=== PATIENT | male | born 2000 | race Caucasian/White ===

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

== ENCOUNTER 2023-07-09 05:15 | Emergency (ER) | payer OTHER, SELFPAY ==
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
[2023-07-09 05:15] VITALS: BP 150/105; PULSE 127; RESP 8; TEMP 36.8; O2SAT 97; BMI 25.5
[2023-07-09] MEDS: Acetaminophen 325 MG TABLET 975 MG PO (05:27)
== END 2023-07-09 06:30 | disposition left against medical advice (07) ==
PROVIDERS: Emergency Provider Emergency Medicine
DX: S99.911A Unspecified injury of right ankle, initial encounter (principal); S62.651A Nondisplaced fracture of middle phalanx of left index finger, initial encounter for closed fracture; V47.6XXA Car passenger injured in collision with fixed or stationary object in traffic accident, initial encounter; Y93.9 Activity, unspecified; Y92.410 Unspecified street and highway as the place of occurrence of the external cause; Y99.9 Unspecified external cause status; Z53.21 Procedure and treatment not carried out due to patient leaving prior to being seen by health care provider
CPT/HCPCS: 73130; 73600; 99282; 99283

== ENCOUNTER 2024-10-16 19:40 | Emergency (ER) | payer OTHER, SELFPAY ==
--- NOTE | ~2024-10-16 | XR_ITS ---
CLINICAL HISTORY: Mediastinal pain 2 view chest x-ray Comparison: None provided Findings: The lungs are clear. Normal size heart. No acute fracture. IMPRESSION: 1. No acute cardiopulmonary abnormality. This document has been electronically signed by: Brendan Sanabria MD on 10/16/2024 23:16:31
--- NOTE | 2024-10-16 19:42 | ECG_ITS ---
Test Reason : cp Blood Pressure : */* mmHG Vent. Rate : 98 BPM Atrial Rate : 98 BPM P-R Int : 138 ms QRS Dur : 88 ms QT Int : 324 ms P-R-T Axes : 59 38 44 degrees QTcB Int : 413 ms Normal sinus rhythm with sinus arrhythmia Normal ECG No previous ECGs available Referred By: Anika Cardenas Electronically Signed By: VIV LOJA MD
[2024-10-16 20:10] VITALS: BP 171/85; PULSE 96; RESP 20; TEMP 37.1; O2SAT 96; BMI 26.1
--- NOTE | 2024-10-16 20:10 | ED.CHESTPAIN ---
HPI - Chest Pain General Chief Complaint: Chest Pain Stated Complaint: Chest pain/lower back pain Time Seen by Provider: 10/16/24 22:43 Source: patient Mode of arrival: ambulatory Limitations: no limitations History of Present Illness ED Provider: HPI narrative: Patient with history of alcohol use been drinking Tequila daily for last 1 week last drink was yesterday complaining of midsternal pain and epigastric pain with nausea and vomiting Related Data Previous Rx's ?Medication ?Instructions ?Recorded omeprazole 40 mg capsule,delayed 40 mg PO DAILY #30 caps 10/17/24 release Allergies Allergy/AdvReac Type Severity Reaction Status Date / Time No Known Allergies (No Known Allergy Verified 10/16/24 20:16 Allergies*) Review of Systems Review of Systems: Yes all other systems are reviewed and are negative [facility] Past Medical History Medical History No known health problems Social History Social History Alcohol intake: current Alcohol intake frequency: 3 or more drinks per day Alcohol type: hard liquor Smoked in Last 30 Days: Yes Use of substances other than those prescribed or required for medical reasons: Yes Substance Use Type: Crack/Cocaine and Marijuana Advance Directives: No Advance Directives Information Provided: No Physical Exam Vital Signs: Vital Signs: Last Vital Signs Temp 98.5 F 10/17/24 00:16 Pulse 88 10/17/24 00:16 Resp 20 10/17/24 00:16 BP 155/95 H 10/17/24 00:16 Pulse Ox 98 10/17/24 00:16 O2 Del Method Room Air 10/17/24 00:16 BMI result Body Mass Index 26.1 Appearance: Alert. Oriented X3. No acute distress. Eyes: PERRLA, No Nystagmus ENT: Pharynx normal. Oral Mucosa moist Neck: Normal inspection. Neck supple. CVS: Normal heart rate and rhythm. Pulses normal. Respiratory: No respiratory distress. Equal air entry bilateral, no wheezing/rales/rhonchi Abdomen: Soft and mild epigastric tenderness no rebound tenderness or guarding Bowel sounds are present, no mass palpable, no CVA tenderness Skin: Skin warm and dry. Normal skin color. Normal skin turgor. Extremities: No lower extremity edema. No calf tenderness Neuro: Oriented X 3. No motor deficit. No sensory deficit.No cerebellar signs , cranial nerves II-XII intact Course Course Course Narrative: This is an RME performed by Yesi Cardenas CNP: Additional HPI, ROS, PE not included below will be deferred to primary provider. Patient is a 24-year-old male who presents to the emergency department for evaluation, reports he is having diffuse lower back pain and anterior chest pain over the past 1.5 weeks constant in nature with varying intensity but progressively worsening. He believes this might be ?from drinking?, admits that he ?drank a lot last week?, endorsing drinking a bottle of Tequila daily in addition to beers. Last drank Tuesday night into Tuesday. 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 He has been experiencing nausea the past 2 days. Vomiting when he is drinking, and states a few days ago he had a single episode of black coffee ground emesis. Plan: Serum labs, urinalysis Medications Administered Discontinued Medications Generic Name Dose Route Start Last Admin Trade Name Freq PRN Reason Stop Dose Admin Al Hydroxide/Mg Hydroxide 30 ml 10/16/24 23:32 10/16/24 23:48 Magnesium Hydrox/Alum Hydrox 30 Ml Oral.Susp PO 10/16/24 23:33 30 ml ONCE ONE Administration Lidocaine HCl 15 ml 10/16/24 23:32 10/16/24 23:48 Lidocaine Hcl Viscous 2 % 15 Ml Solution MUCOUS MEM 10/16/24 23:33 15 ml ONCE ONE Administration Omeprazole 40 mg 10/16/24 23:32 10/16/24 23:48 Omeprazole 40 Mg Capsule.Dr PO 10/16/24 23:33 40 mg ONCE ONE Administration Medical Decision Making Medical Decision Making [facility] Narrative: Patient alcoholic gastritis improved after Prilosec and Maalox no signs of pancreatitis will discharge patient home Differential Diagnosis Differential Diagnoses: The differential diagnosis associated with the presentation includes Gastritis/pancreatitis/esophagitis Lab Data [facility] Lab Attestation statement: I reviewed the patient's lab results. 10/16/24 20:36 10/16/24 20:36 Labs: Lab Results 10/16/24 Range/Units 20:36 WBC 8.9 (4.8-10.8) X10*3/uL RBC 5.54 (4.60-5.80) X10*6/uL Hgb 17.2 (14.0-18.0) g/dl Hct 48.0 (42.0-52.0) % MCV 86.6 (80.0-98.0) fL MCH 31.0 (27.0-33.0) pg MCHC 35.8 (31.0-36.0) g/dl RDW 13.0 (11.0-16.0) % Plt Count 292 (160-400) X10*3/uL MPV 9.0 L (9.4-12.4) fL Immature Gran % (Auto) 0.4 (0.0-0.4) % Neut % (Auto) 63.0 (45-73) % Lymph % (Auto) 22.4 (20-40) % [place] % (Auto) 11.6 H (2-11) % Eos % (Auto) 2.0 (0-4) % Baso % (Auto) 0.6 (0-2) % Lymph # (Auto) 2.0 (1.2-4.9) X10*3/uL [place] # (Auto) 1.0 (0.1-1.2) X10*3/uL Eos # (Auto) 0.2 (0.0-0.4) X10*3/uL Baso # (Auto) 0.1 (0.0-0.2) X10*3/uL Abs Immat Gran (auto) 0.04 H (0.00-0.03) X10*3/uL Absolute Neuts (auto) 5.6 (2.0-8.3) x10*3/uL Absolute Nucleated RBC 0.000 (0.0-0.012) X10*3/uL Nucleated RBC % (auto) 0.0 (0.0-0.2) /100WBC Sodium 141 (135-145) mmol/L Potassium 3.9 (3.3-5.1) mmol/L Chloride 107 (96-108) mmol/L Carbon Dioxide 24 (22-29) mmol/L Anion Gap 14 (12-20) BUN 6 L (9-16) mg/dL Creatinine 0.91 (0.5-1.4) mg/dL Estim Creat Clear Calc 135.6 Estimated GFR > 60 Random Glucose 122 H (60-115) mg/dL Calcium 9.3 (8.4-10.2) mg/dL Magnesium 2.2 (1.6-2.6) mg/dL Total Bilirubin 1.8 H (0.0-1.0) mg/dL AST 32 (5-37) U/L ALT 22 (0-40) U/L Alkaline Phosphatase 85 (39-117) U/L Troponin I High Sens < 2.7 (<3.5-35.0) ng/L Total Protein 7.5 (6.5-8.0) g/dL Albumin 4.8 (3.5-5.0) g/dL Lipase 32 (8-78) U/L Ethyl Alcohol < 10 mg/dL Discharge Plan Discharge Clinical Impression: Acute alcoholic gastritis Patient Disposition: Home, Self-Care Instructions: Gastritis (ED) Additional Instructions: Stop drinking alcohol Start taking Prilosec daily Follow with your PCP if not better Prescriptions: New omeprazole 40 mg capsule,delayed release(DR/EC) 40 mg PO DAILY Qty: 30 0RF Interventions: ED Discharge Assessment Last Done: 10/17/24 00:16 Discharge Date/Time: 10/17/24 00:16 Print Language: Greenlandic
[2024-10-16 20:41] LABS: MANUAL DIFF FLAG NO
[2024-10-16 20:42] LABS: Hematocrit 48.0 % (42.0-52.0); Hemoglobin 17.2 g/dl (14.0-18.0); Imm Gran Abs Auto 0.04 X10*3/uL (0.00-0.03); Imm Gran Pct Auto 0.4 % (0.0-0.4); Lymphocytes Absolute Auto 2.0 X10*3/uL (1.2-4.9); Mean Corpuscular HGB Conc 35.8 g/dl (31.0-36.0); Mean Corpuscular Hemoglobin 31.0 pg (27.0-33.0); Mean Corpuscular Volume 86.6 fL (80.0-98.0); NRBC Abs Auto 0.000 X10*3/uL (0.0-0.012); NRBC Pct Auto 0.0 /100WBC (0.0-0.2); Platelet Count 292 X10*3/uL (160-400); Red Blood Count 5.54 X10*6/uL (4.60-5.80); White Blood Count 8.9 X10*3/uL (4.8-10.8)
[2024-10-16 20:56] LABS: Alanine Aminotransferase 22 U/L (0-40); Albumin Level 4.8 g/dL (3.5-5.0); Alkaline Phosphatase 85 U/L (39-117); Anion Gap 14 (12-20); Aspartate Amino Transferase 32 U/L (5-37); Blood Urea Nitrogen 6 mg/dL (9-16); Calcium 9.3 mg/dL (8.4-10.2); Carbon Dioxide 24 mmol/L (22-29); Chloride 107 mmol/L (96-108); Creatinine Clr Calc Pharmacy 135.6; Estimated Glomerular Filt Rate > 60; Lipase 32 U/L (8-78); Magnesium 2.2 mg/dL (1.6-2.6); Potassium 3.9 mmol/L (3.3-5.1); Sodium 141 mmol/L (135-145); Total Protein 7.5 g/dL (6.5-8.0)
[2024-10-16 21:05] LABS: Troponin-I High Sensitivity < 2.7 ng/L (<3.5-35.0)
[2024-10-16 21:11] VITALS: BP 174/96; PULSE 82; PULSE 83; RESP 20; O2SAT 98
--- NOTE | 2024-10-16 21:14 | PC.NURSE ---
pt ambulatory from wr to [id number] reporting substernal cp radiating to back onset 1.5 weeks ago. pt reports daily alcohol use, also reports cocaine use, last was 1 week ago. pt reports hx alcohol withdrawal tremors/anxiety, does not have those sx at this time. +nausea denies vomiting/diarrhea. asked pt if he would like to speak to recovery for alcohol/drug use and pt denies at this time. placed on cloth finishing range back tender. bp remains elevated, no hx HTN. awaiting eval by ed provider.
[2024-10-16 23:12] VITALS: BP 155/95; PULSE 88; RESP 20; TEMP 36.9; O2SAT 98
[2024-10-16] MEDS: Magnesium Hydrox/Alum Hydrox 30 ML ORAL.SUSP PO (23:48)
[2024-10-16] MEDS: Lidocaine HCl Viscous 2 % 15 ML SOLUTION MUCOUS MEM (23:48)
[2024-10-17 00:16] VITALS: BP 155/95; PULSE 88; RESP 20; TEMP 36.9; O2SAT 98
== END 2024-10-17 00:16 | disposition home or self-care (01) ==
PROVIDERS: Nurse Practitioner Family; Emergency Provider Internal Medicine
DX: K29.20 Alcoholic gastritis without bleeding (principal); R10.13 Epigastric pain; R11.2 Nausea with vomiting, unspecified; M54.50 Low back pain, unspecified; Z79.899 Other long term (current) drug therapy
CPT/HCPCS: 36415; 71046; 80053; 80307; 83690; 83735; 84484; 85025; 93005; 99283; 99285

== ENCOUNTER → 2024-10-16 19:42 | Outpatient (BNV) | payer OTHER, SELFPAY | PROVIDERS: Emergency Provider Internal Medicine; Visit Provider Internal Medicine Cardiovascular Disease | DX: R07.9 Chest pain, unspecified (principal) | CPT/HCPCS: 93010 ==

== ENCOUNTER → 2024-10-16 22:44 | Outpatient (BNV) | payer OTHER, SELFPAY | PROVIDERS: Emergency Provider Internal Medicine; Visit Provider Radiology Diagnostic Radiology | DX: R07.89 Other chest pain (principal) | CPT/HCPCS: 71046 ==